=== PATIENT | male | born 1985 | race Caucasian/White ===

== ENCOUNTER → 2020-05-08 09:40 | Outpatient (CLI) | payer OTHER, SELFPAY ==
--- NOTE | ~2020-05-08 | CT_ITS ---
EXAMINATION: CT abdomen pelvis wo con DATE: 05/08/2020 10:11 INDICATION: Flank pain TECHNIQUE: Computed tomography (CT) of the abdomen and pelvis was performed without intravenous contr ast. The dose-length product was 698.70 mGy-cm. Automated exposure control and iterative reconstructi on technique were employed. COMPARISON: None. FINDINGS: Lung bases are unremarkable. Heart size normal. No significant pleural or pericardial effus ion. No significant vascular abnormality. No lymphadenopathy. Nonobstructive bowel gas pattern. Mirtha l appendix. No abnormal pelvic masses or fluid collections. No ureteral stones or hydronephrosis. No free air or free fluid. No significant bone or joint abnormality. IMPRESSION: 1. No acute abdominal abnormality. No findings to account for patient's symptoms. Reviewed, dictated and finalized at location B. IMPRESSION: 1. No acute abdominal abnormality. No findings to account for patient's symptom s.
== END ==
DX: R10.9 Unspecified abdominal pain (principal)
CPT/HCPCS: 74176

== ENCOUNTER 2021-12-29 11:21 | Emergency (ER) | payer OTHER, SELFPAY ==
[2021-12-29 12:20] VITALS: BP 145/87; PULSE 93; RESP 20; TEMP 36.6; O2SAT 100
--- NOTE | 2021-12-29 14:50 | ED.URI ---
HPI - URI/Sore Throat General Chief Complaint: Upper Respiratory Infection Stated Complaint: Sinus Pain Time Seen by Provider: 12/29/21 14:50 Source: patient Mode of arrival: ambulatory Limitations: no limitations History of Present Illness HPI Narrative: 36 year old male presents to [facility] care with complaints of copious sinus drainage, has felt warm and cold, no sleeping well due to drainage with symptoms starting 2 days ago. Patient reports that he felt weird a week ago and did home COVID test which was negative. Patient denies any body aches, does report fatigue along with sinus drainage but reports he is not sleeping well. He states that daughter has been ill also with cold symptoms. MD elicited complaint: cough and sore throat Onset (ago): day(s) (2) Description of mucous: yellow Able to tolerate fluids by mouth: Yes Exacerbating factors: leaning forward Treatments prior to arrival: other (phi, Tylenol sinus medication) Related Data Home Medications Medication Instructions Recorded Confirmed bupropion HCl 150 mg 24 hr tablet, 150 mg 12/29/21 extended release buspirone 7.5 mg tablet 7.5 mg PO DAILY 12/29/21 12/29/21 ergocalciferol (vitamin D2) 1,250 50,000 unit PO WEEKLY 12/29/21 12/29/21 mcg (50,000 unit) capsule Allergies Allergy/AdvReac Type Severity Reaction Status Date / Time No Known Allergies Allergy Verified 12/29/21 13:00 Review of Systems Review of Systems: CONSTITUTIONAL: Reports malaise, chills, sweats, unknown if fever. EYES: Denies visual changes, redness, or discharge. ENT: Reports rhinorrhea, congestion, sinus pain, no otalgia no sore throat. CARDIOVASCULAR: Denies chest pain, palpitations, or edema. RESPIRATORY: Reports cough.? Denies dyspnea. GASTROINTESTINAL: Denies abdominal pain, nausea, vomiting, diarrhea SKIN: Denies rash or itching. MUSCULOSKELETAL: Denies myalgia. NEUROLOGIC: Reports frontal headache. All systems reviewed & are unremarkable except as noted in HPI and below PMFSH Past Medical History Medical History (Updated 01/03/22 @ 19:10 by Jessica Verdugo NP) Anxiety Depression Ear infection Social History Social History (Updated 01/03/22 @ 18:59 by Jessica L. Lucina, HYPERTRICHOLOGIST) Smoking status: Never smoker Living arrangements: with family Gender identity (if verbalized by the patient): Male Comments At time of signature, agree with nursing past medical, surgical, social and family history. There is no relevant family history pertinent to the presenting complaint Exam Narrative: GENERAL: Well-appearing, well-nourished, and in no acute distress. HEAD: Normocephalic EYES: PERRLA, conjunctivae clear ENT: Nares clear, turbinates edematous and erythematous, yellow nasal drainage. Mucous membranes moist. TM pearly hanna with dull light reflex bilaterally; no tragal tenderness. Oropharynx erythematous without lesions. Tonsils not enlarged and without exudate, no drooling, no hoarseness, no trismus, uvula midline, post nasal drainage NECK: Supple. No lymphadenopathy CHEST: Clear to auscultation, breath sounds equal. No wheezing, rhonchi, rales, or stridor. No respiratory distress, speaks in full sentences.cough, SAO2 100% on room air HEART: Regular rate and rhythm. No murmur heard. SKIN: Warm, dry, no rash. NEURO: Alert and oriented x3. PSYCH: Normal mood and affect Course Course Emergency Course: Patient is aware of diagnosis, understands and agrees to treatment plan.? Anticipatory guidance given.? Patient agrees to follow-up as directed and is aware of reasons to seek care at the emergency department. Portions of this record may have been created with voice recognition software Level of Care: Express Care Visit Vital Signs Vital signs: Vital Signs Temperature 36.6 C 12/29/21 12:20 Pulse Rate 93 12/29/21 12:20 Respiratory Rate 20 12/29/21 12:20 Blood Pressure 145/87 H 12/29/21 12:20 Pulse Oximetry 100 11
== END 2021-12-29 15:52 | disposition home or self-care (01) ==
PROVIDERS: Emergency Provider Registered Nurse; PCP Nurse Practitioner Family
DX: J32.8 Other chronic sinusitis (principal); B96.89 Other specified bacterial agents as the cause of diseases classified elsewhere
CPT/HCPCS: 87804; 99203; G0463

== ENCOUNTER 2023-01-16 12:17 | Emergency (ER) | payer OTHER, SELFPAY ==
--- NOTE | ~2023-01-16 | XR_ITS ---
Left ankle Technique: AP, oblique, and lateral views were obtained. Clinical History: Lateral pain and swelling Findings: Questionable tiny avulsion fracture the tip of the medial malleolus. Osseous alignment is a natomic. Ankle mortise and other visualized joint spaces are preserved. There is lateral soft tissue swelling. Impression: Questionable tiny avulsion fracture at the tip of the medial malleolus. Lateral soft tissue swelling. Reviewed, dictated and finalized at location M. [employer] Impression: Questionable tiny avulsion fracture at the tip of the medial malleolus. Lateral soft tissue swelling.
[2023-01-16 12:27] VITALS: BP 138/70; PULSE 64; RESP 18; TEMP 35.8; O2SAT 99
--- NOTE | 2023-01-16 12:48 | PC.NURSE ---
PT TAKEN TO ROOM AND RADIOLOGY IN WHEELCHAIR
--- NOTE | 2023-01-16 13:42 | ED.LOWEXIN ---
HPI - Extremity Injury (Lower) General Chief Complaint: Extremity Injury, Lower Stated Complaint: Left Foot Injury Time Seen by Provider: 01/16/23 13:30 Source: patient, RN notes reviewed and old records reviewed Mode of arrival: wheelchair Limitations: no limitations History of Present Illness HPI Narrative: 37 year old male accompanied by and daughter preents to express care with complaints of left ankle injury. Patient reports that he was standing on the stairs at home, foot turned and he fell down last 2 steps landing on his left ankle.Patient reports pain and swelling to the lateral aspect of his ankle with inability to bear weight. Patient reports that he has applied ice to his ankle. MD complaint: ankle injury Onset (ago): hour(s) (45 minutes prior to arrival) Injury: Left: ankle Place: home Severity scale (1-10): 7 Treatments prior to arrival: cold therapy Related Data Home Medications Medication Instructions Recorded Confirmed bupropion HCl 150 mg 24 hr tablet, 150 mg 12/29/21 extended release buspirone 7.5 mg tablet 7.5 mg PO DAILY 12/29/21 12/29/21 ergocalciferol (vitamin D2) 1,250 50,000 unit PO WEEKLY 12/29/21 12/29/21 mcg (50,000 unit) capsule atenolol 25 mg tablet mg 01/16/23 atorvastatin 10 mg tablet mg 01/16/23 dextroamphetamine-amphetamine ER PO 01/16/23 10 mg 24hr capsule,extend release sertraline 100 mg tablet mg 01/16/23 sertraline 50 mg tablet mg 01/16/23 trazodone 50 mg tablet mg 01/16/23 Allergies Allergy/AdvReac Type Severity Reaction Status Date / Time No Known Allergies Allergy Verified 01/16/23 12:39 Review of Systems Review of Systems: CONSTITUTIONAL: Denies fever, chills, or sweats. EYES: Denies visual changes, redness, or discharge. ENT: Denies rhinorrhea, congestion, sore throat, or otalgia. CARDIOVASCULAR: Denies chest pain, palpitations, or edema. RESPIRATORY: Denies cough or dyspnea. GASTROINTESTINAL: Denies abdominal pain, nausea, vomiting, or diarrhea. GENITOURINARY: Denies dysuria or hematuria. SKIN: Denies rash or itching. MUSCULOSKELETAL: Denies back pain,positive for lateral left ankle pain and swelling or myalgia. NEUROLOGIC: Denies headache, numbness, or weakness. PSYCHIATRIC: Reports history of anxiety or depression. All systems reviewed & are unremarkable except as noted in HPI and below PMFSH Past Medical History Medical History (Updated 01/18/23 @ 07:20 by Jessica Verdugo NP) ADHD (attention deficit hyperactivity disorder) Anxiety Depression Ear infection Hyperlipidemia Hypertension Social History Social History (Updated 01/03/22 @ 18:59 by Jessica Verdugo NP) Smoking status: Never smoker Living arrangements: with family Gender identity (if verbalized by the patient): Male Comments At time of signature, agree with nursing past medical, surgical, social and family history. There is no relevant family history pertinent to the presenting complaint Exam Narrative: GENERAL: Well-appearing, well-nourished, and in no acute distress. HEAD: Normocephalic, atraumatic. EYES: PERRLA and EOMI. ENT: Nares clear, no rhinorrhea or epistaxis. Mucous membranes moist. NECK: Supple.no lymphadenopathy CHEST: Clear to auscultation. No respiratory distress.SAO2 99% on room air HEART: Regular rate and rhythm. No murmur heard. Normal peripheral pulses. ABDOMEN: Soft, nontender, nondistended, normal active bowel sounds. EXTREMITIES: Normal range of motion. No edema.Exception noted to swelling and pain to lateral left ankle, circulation and sensation intact to left foot, painful with any attempt to move ankle. SKIN: Warm, dry, no rash. NEURO: No focal deficits. Alert and oriented x3. Course Course Emergency Course: Patient is aware of diagnosis, understands and agrees to treatment plan.? Anticipatory guidance given.? Patient agrees to follow-up as directed and is aware of reasons to seek care at the emergency department. Portions of t
--- NOTE | 2023-01-16 17:28 | PC.NURSE ---
1702 spouse came in to p/u rx for walking boot. had talked to provider over phone. requested rx so cost could be covered with ins. did get crutches. has appt. with pmd. stated may not use rx but wanted it just in case.
== END 2023-01-16 14:06 | disposition home or self-care (01) ==
PROVIDERS: Emergency Provider Registered Nurse; PCP Nurse Practitioner Family
DX: S82.52XA Displaced fracture of medial malleolus of left tibia, initial encounter for closed fracture (principal); E78.5 Hyperlipidemia, unspecified; I10 Essential (primary) hypertension; Z79.899 Other long term (current) drug therapy; F41.9 Anxiety disorder, unspecified; F32.A Depression, unspecified; W10.9XXA Fall (on) (from) unspecified stairs and steps, initial encounter; Y92.009 Unspecified place in unspecified non-institutional (private) residence as the place of occurrence of the external cause
CPT/HCPCS: 73610; 99214; G0463